=== PATIENT | male | born 1990 | race Caucasian/White ===

== ENCOUNTER 2017-06-29 22:45 | Emergency (ER) | payer MEDICAID ==
[~2017-06-29] VITALS: Ht 182.9 cm; Wt 81.6 kg
[~2017-06-29 22:45] MED LIST: AMOX-559 PO; KET10 PO
[2017-06-29 22:48] VITALS: BP 168/109
--- NOTE | 2017-06-29 22:59 | ER Report ---
History and Physical Time Seen By MD: 22:48 HPI/ROS CHIEF COMPLAINT: Left lower dental pain 2 days HISTORY OF PRESENT ILLNESS: 18-year-old male presents a the ER complaining of 8/10 throbbing pain in his left lower jaw. Patient has a tooth with a filling that bothered him several months back. It resolved. He has a large caries in tooth at position #19. His been unable to sleep. He states she 's been taking ibuprofen and Tylenol without relief. He has no difficulty swallowing or breathing. REVIEW OF SYSTEMS: Respiratory: No cough, no dyspnea. Cardiovascular: No chest pain, no palpitations. Gastrointestinal: No vomiting, no abdominal pain. Musculoskeletal: No back pain. Allergies: Coded Allergies: azithromycin (Verified Allergy, Intermediate, HIVES, 06/29/17) Home Meds Active Scripts Hydrocodone Bit/Acetaminophen (NORCO 5-325 TABLET) 1 Each Tablet, 1 EACH PO Q4H Y for PAIN, #10 TAB Prov:STEPHEN AMEZQUITA Pierce DO 06/29/17 Amoxicillin (AMOXICILLIN) 875 Mg Tablet, 1 TAB PO Q12H for infection, #20 TAB Prov:STEPHEN AMEZQUITA DO 06/29/17 Discontinued Scripts Ketorolac Tromethamine (KETOROLAC TROMETHAMINE) 10 Mg Tab, 10 MG PO Q6H, #20 TAB Prov:JORGE GILL 09/04/15 Amoxicillin/Pot Clav 875-125 Mg Tab (AUGMENTIN 875-125 TABLET) 1 Each Tablet, 1 TAB PO Q12H, #20 TAB Prov:JORGE GILL 09/04/15 Reviewed Nurses Notes: Yes Old Medical Records Reviewed: Yes Hx Smoking: Yes (1.2ppd) Smoking Status: Current: Every Day Smoker Hx Substance Use Disorder: No Hx Alcohol Use: Yes (MONTHLY) Constitutional Vital Sign - Last 24 Hours 06/29/17 22:48 Temp 99.0 Pulse 76 Resp 18 B/P (MAP) 168/109 Pulse Ox 96 O2 Delivery Room Air Physical Exam General Appearance: The patient is alert, has no immediate need for airway protection and no current signs of toxicity. Vital signs stable, afebrile, pulse ox normal HEENT: Pupils equal and round no injection. TMs normal, TMJs nontender, examination of the oropharynx reveals a tooth with surrounding gum inflammation. The tooth position #19. There is a large gilma. Respiratory: Chest is non tender, lungs are clear to auscultation. Cardiac: regular rate and rhythm Gastrointestinal: Abdomen is soft and non tender, no masses, bowel sounds normal. Musculoskeletal: Neck: Neck is supple and non tender. Extremities have full range of motion and are non tender. Skin: No rashes or lesions. DIFFERENTIAL DIAGNOSIS: After history and physical exam differential diagnosis was considered for toothache, tooth abscess, osteomyelitis of the mandible, dental pain, TMJ disorder Medical Decision Making ED Course/Re-evaluation ED Course Patient was admitted to an examination room. H&P was done. The differential diagnoses was considered. On clinical examination. Patient has a swollen tooth that appears infected. He'll be covered with amoxicillin. Begin a limited supply of hydrocodone for temporary pain relief. Patient advised to follow-up with a dentist. Upon returning home to [place]. Decision to Disposition Date: Jun 29, 2017 Decision to Disposition Time: 22:58 Depart Departure Latest Vital Signs Vital Signs Date Time Temp Pulse Resp B/P (MAP) Pulse Ox O2 Delivery O2 Flow Rate FiO2 06/29/17 22:48 99.0 76 18 168/109 96 Room Air Impression: Primary Impression: Tooth abscess Condition: Improved Disposition: HOME OR SELF-CARE New Scripts Hydrocodone Bit/Acetaminophen (NORCO 5-325 TABLET) 1 Each Tablet 1 EACH PO Q4H Y for PAIN, #10 TAB Prov: STEPHEN AMEZQUITA DO 06/29/17 Amoxicillin (AMOXICILLIN) 875 Mg Tablet 1 TAB PO Q12H for infection, #20 TAB Prov: STEPHEN AMEZQUITA DO 06/29/17 Patient Instructions: Dental Abscess (ED) Additional Instructions: Take ibuprofen 200 mg 3-4 tablets 3 times a day with food Apply warm compresses to your left jaw area Follow-up with dentist as soon as possible STEPHEN AMEZQUITA DO Jun 29, 2017 22:59
[2017-06-29] MEDS ORDERED: AMOX875T60 PO (23:04)
[2017-06-29] MEDS ORDERED: HYDR-4309 PO (23:04)
[2017-06-29] MEDS ORDERED: ACET/HYDROC 5/325MG TH ER ONLY 2 TAB/BOTTLE PO ONE (23:05)
[2017-06-29] MEDS ORDERED: AMOXICILLIN 500 MG CAP PO ONE (23:05)
== END 2017-06-29 23:12 | disposition home or self-care (01) ==
LOC: ER 22:46
DX: K04.7 Periapical abscess without sinus (principal)
CPT/HCPCS: 99282

== ENCOUNTER 2018-04-13 11:39 | Emergency (ER) | payer MEDICAID ==
[~2018-04-13 11:39] MED LIST changes: +AMOX875T60 PO; +HYDR-653 PO
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
[2018-04-13] MEDS ORDERED: predniSONE 20 MG TAB PO ONE (11:55)
[2018-04-13] MEDS ORDERED: ORPHENADRINE 60MG/2ML INJ IM ONE (11:55)
[2018-04-13] MEDS ORDERED: PRED20TA6 PO (12:43)
[2018-04-13] MEDS ORDERED: CYCL10TA29 PO (12:43)
--- NOTE | 2018-04-13 13:07 | RADIOLOGY IMAGING REPORT ---
FACILITY: [facility] [place] PATIENT NAME: Jarrod Renteria : 1990 MR: [id number] V: [id number] EXAM DATE: ORDERING PHYSICIAN: CASANDRA KLEIN TECHNOLOGIST: Location: [facility] Patient: Jarrod Renteria : 1990 Visit/Account:[id number] Date of Sevice: 04/13/2018 CERVICAL SPINE MIN 4 VIEW INDICATION: Neck pain and bilateral arm pain. COMPARISON: 07/20/2010. FINDINGS: 5 views of the cervical spine. The vertebral bodies are aligned. No indication of acute f racture or facet dislocation. No bony lesions or significant degenerative changes. Anterior to the C4 vertebral bodies a tiny calcific density likely from previous injury. No foramina appear patent bila terally. The prevertebral soft tissues are unremarkable. Lung apices are clear. IMPRESSION: Unremarkable exam. Report Dictated By: Erick Price at 04/13/2018 1:01 PM Report E-Signed By: Erick Price at 04/13/2018 1:03 PM WSN:[id number]
[2018-04-13 13:39] VITALS: BP 142/104
== END 2018-04-13 13:44 | disposition home or self-care (01) ==
LOC: ER 11:52
DX: M54.12 Radiculopathy, cervical region (principal); G25.89 Other specified extrapyramidal and movement disorders
CPT/HCPCS: 72050; 96372; 99284; J2360; J7512; 99283